=== PATIENT | male | born 1940 | race Caucasian/White ===

== ENCOUNTER 2020-08-28 00:30 | Emergency (ER) | payer MEDICARE ==
[~2020-08-28 00:30] MED LIST: AMLO-258 PO; ATEN25TA PO; METF-446 PO; SIMV10TA97 PO
[2020-08-28] MEDS ORDERED: SODIUM CHLORIDE 0.9% 500ML 500 ML IV ONE (00:31)
[2020-08-28] MEDS ORDERED: LIDOCAINE 5% TOPICAL PATCH TP ONE (01:08)
[2020-08-28] MEDS ORDERED: ORPHENADRINE CITRATE 30 MG/ML ML ONE (01:08)
[2020-08-28 02:28] LABS: EOSINOPHILS % (AUTO) 11.5 % (0.0-8.0); HEMATOCRIT 38.5 % (42-54); LYMPHOCYTES % (AUTO) 18.4 % (21.0-51.0); MEAN CORPUSCULAR HEMOGLOBIN 29.4 pg (27.0-33.0); MEAN CORPUSCULAR HGB CONC 31.9 g/dL (32.0-36.0); MEAN CORPUSCULAR VOLUME 91.9 fL (79-99); NEUTROPHILS % (AUTO) 60.9 % (40.0-77.0); PLATELET COUNT (AUTO) 265 K/uL (130-400); RED BLOOD CELL COUNT(AUTO) 4.19 MIL/uL (4.50-6.20); RED CELL DISTRIBUTION WIDTH 13.3 % (11.0-15.5)
[2020-08-28 02:32] LABS: POTASSIUM 4.2 mmol/L (3.5-5.1)
[2020-08-28 02:35] LABS: INR 0.94 (0.85-1.15); PROTHROMBIN TIME 10.1 SEC (9.6-11.6)
[2020-08-28 02:36] LABS: PARTIAL THROMBOPLASTIN TIME 25.7 SEC (26.3-35.5)
[2020-08-28 02:37] LABS: ALBUMIN 2.7 g/dL (3.5-5.0); BILIRUBIN,TOTAL 0.2 mg/dL (0.2-1.0); TOTAL PROTEIN, SERUM 5.9 g/dL (6.0-8.3)
[2020-08-28] MEDS ORDERED: KETOROLAC TROMETHAMINE 15MG/ML ONE (03:20)
[2020-08-28] MEDS ORDERED: HYDROCODONE/ACETAMINOPHEN 5/325 MG TAB ONE (03:21)
== END 2020-08-28 04:19 | disposition home or self-care (01) ==
LOC: EDH 00:30
DX: R51.9 Headache, unspecified (principal); M62.838 Other muscle spasm; R42 Dizziness and giddiness; I10 Essential (primary) hypertension; E78.00 Pure hypercholesterolemia, unspecified; E11.9 Type 2 diabetes mellitus without complications; Z88.0 Allergy status to penicillin
CPT/HCPCS: 36415; 70450; 72125; 80053; 84484; 85025; 85610; 85730; 93005; 96374; 96375; 99285; J1885; J2360; J7040

== ENCOUNTER → 2021-03-21 | Outpatient (CLI) | payer MEDICARE | END | disposition home or self-care (01) | LOC: RAH 09:21 | PROVIDERS: ATTEND Internal Medicine Gastroenterology | DX: R10.13 Epigastric pain (principal) | CPT/HCPCS: 74240 ==